=== PATIENT | male | born 1975 | race Caucasian/White ===

== ENCOUNTER 2017-04-05 19:44 | Observation (INO) | payer BC ==
[~2017-04-05] VITALS: Ht 182.9 cm; Wt 105.3 kg
[2017-04-05] MEDS ORDERED: SODIUM CHLORIDE 0.9% 1000ML 1,000 ML IV STA (20:36)
[2017-04-05] MEDS ORDERED: OPTIRAY 320 IV PRN (20:45)
--- NOTE | 2017-04-05 20:58 | DIAGNOSTIC IMAGING REPORT ---
SINGLE VIEW CHEST CLINICAL HISTORY: Atypical chest pain. FINDINGS: An AP, portable, upright chest radiograph is obtained. No prior studies are available for comparison at the time of dictation. The cardiomediastinal silhouette is unremarkable. The lungs and pleural spaces are clear. No pneumothorax is seen. The bony thorax is grossly intact. IMPRESSION: No active disease in the chest. Electronically signed by: Trevin Hawley M.D. 04/05/2017 8:56 PM Dictated Date/Time: 04/05/2017 8:56 PM
[2017-04-05 20:59] LABS: BASO % 0.3 %; BASO ABS # 0.03 K/uL (0-0.2); EOS % 0.8 %; EOS ABS # 0.08 K/uL (0-0.5); HEMATOCRIT 39.9 % (42-52); HEMOGLOBIN 13.7 g/dL (14.0-18.0); IG# 0.03 K/uL (0.00-0.02); LYMPH % 24.5 %; LYMPH ABS # 2.47 K/uL (1.2-3.4); MEAN CELL VOLUME 90.5 fL (80-100); MEAN CORPUSCULAR HEMOGLOBIN 31.1 pg (25-34); MEAN CORPUSCULAR HGB CONC 34.3 g/dl (32-36); MEAN PLATELET VOLUME 9.3 fL (7.4-10.4); MONO % 9.3 %; MONO ABS # 0.94 K/uL (0.11-0.59); NEUT % 64.8 %; NEUT ABS # 6.52 K/uL (1.4-6.5); PLATELET COUNT 269 K/uL (130-400); RED CELL DISTRIBUTION WIDTH CV 12.8 % (11.5-14.5); RED CELL DISTRIBUTION WIDTH SD 42.8 fL (36.4-46.3); WHITE BLOOD COUNT 10.07 K/uL (4.8-10.8)
[2017-04-05] MEDS ORDERED: PATIENT'S ALLERGY INFO NEEDS ENTERED SCH (21:00)
[2017-04-05 21:15] LABS: ALBUMIN 3.9 gm/dl (3.4-5.0); CALCIUM 9.3 mg/dl (8.5-10.1); CREATININE 1.25 mg/dl (0.60-1.40)
[2017-04-05 21:18] LABS: TOTAL PROTEIN 8.1 gm/dl (6.4-8.2)
--- NOTE | 2017-04-05 22:04 | DIAGNOSTIC IMAGING REPORT ---
CT ANGIOGRAM OF THE CHEST CLINICAL HISTORY: Cough. Chest tightness. COMPARISON STUDY: Chest x-ray dated 04/05/2017. TECHNIQUE: Following the IV administration of 93 cc of Optiray 320, CT angiogram of the chest was performed from the upper abdomen to the thoracic inlet utilizing the pulmonary embolus protocol. Images are reviewed in the axial, sagittal, and coronal planes. 3-D MIPS images are created and assessed. IV contrast was administered without complication. A dose lowering technique was utilized adhering to the principles of ALARA. CT DOSE: 558.96 mGy.cm FINDINGS: Thyroid: Imaged portions of the thyroid gland are normal in size and attenuation. Thoracic aorta: The thoracic aorta is normal in caliber and demonstrates standard 3-vessel arch anatomy. No dissection is seen. Pulmonary vasculature: The pulmonary trunk is normal in caliber. There are no filling defects identified in main, lobar, or segmental pulmonary branches to suggest pulmonary embolus. Heart: The heart is Normal in size and without pericardial effusion. Lungs and pleural spaces: Patchy groundglass consolidation is seen in the left lower lobe. The lungs are otherwise clear noting dependent atelectasis. No pleural effusion is identified. A calcified granuloma seen at the left lung base. The trachea and central airways appear patent. Mild diffuse peribronchial thickening suggests reactive airway disease. Mediastinum: There is no mediastinal lymphadenopathy. Reina: Clear. Axillae: There is no axillary lymphadenopathy. Upper abdomen: The liver is steatotic. Fatty sparing is noted adjacent to gallbladder fossa. Partially visualized upper abdominal viscera is otherwise within normal limits. Skeletal structures: No lytic or blastic bony lesions are seen. IMPRESSION: 1. There is no evidence of pulmonary embolus in the main, lobar, or segmental pulmonary arteries. 2. There is mild patchy groundglass consolidation in the left lower lobe, likely representing a mild infectious/inflammatory pneumonitis. Clinical correlation will be required. 3. The lungs are otherwise clear. Mild diffuse peribronchial thickening suggests reactive airway disease. 4. Hepatic steatosis. Electronically signed by: Trevin Hawley M.D. 04/05/2017 10:03 PM Dictated Date/Time: 04/05/2017 9:59 PM
[2017-04-05] MEDS ORDERED: ASPIRIN 81 MG CHEW PO STA (22:15)
--- NOTE | 2017-04-05 22:40 | EMERGENCY ROOM VISIT NOTE ---
ED Visit Note First contact with patient: 20:24 Patient was discussed with my PA and the current plan is with the EKG changes to observe him overnight.
[2017-04-05] MEDS ORDERED: VANCOMYCIN INJ 2,500 MG in SODIUM CHLORIDE 0.9% 500ML 500 ML IV STA (23:01)
[2017-04-05] MEDS ORDERED: VANCOMYCIN CONSULT ACTIVE PRN (23:15)
--- NOTE | 2017-04-05 23:42 | History and Physical ---
History & Physical Date & Time of Service: Apr 05, 2017 at 23:30 Chief Complaint: Cough, Chest Tightness- Physician Referred Primary Care Physician: No Doctor, Assigned History of Present Illness Source: patient 41 y/o M who denies any significant medical history. The pt is recovering from an upper respiratory infection. His and two children were recently treated for influenza. He had presented to his PCP earlier in the week and was not given Tamiflu himself or tested for influenza as his MD felt that this would be self-limiting. This evening, he developed L lower CP and presented to the hospital. The pain resolved spontaneously. There was concern for inferior T wv inversions on an initial EKG. The pt was sent for a CTA while in the ER which revealed a small LLL consolidation. Past Medical/Surgical History Denies a significant medical history Family History The pt denies a family history of CAD Social History [employer] for [employer] Smoking Status: Never Smoker Allergies Coded Allergies: No Known Allergies (Unverified , 04/05/17) Home Medications No Active Prescriptions or Reported Meds Review of Systems Constitutional: + fever (a few days prior) ENT: + nasal symptoms, + sore throat, No hearing loss Respiratory: + cough, + sputum, No wheezing Cardiovascular: + chest pain, No orthopnea, No PND Abdomen: No pain, No nausea, No vomiting Musculoskeletal: No joint pain Genitourinary - Male: No hematuria, No dysuria Neurologic: No memory loss, No paralysis, No weakness Psychiatric: No depression symptoms Endocrine: No fatigue Hematologic / Lymphatic: No abnormal bleeding/bruising Integumentary: No rash Physical Exam Vital Signs Date Time Temp Pulse Resp B/P (MAP) Pulse Ox O2 Delivery O2 Flow Rate FiO2 04/05/17 22:27 78 17 148/88 97 Room Air 04/05/17 20:49 61 04/05/17 19:53 98 Room Air 04/05/17 19:49 37.0 80 16 129/87 98 Room Air General Appearance: WD/WN, no apparent distress Head: normocephalic Eyes: normal inspection ENT: normal ENT inspection, pharynx normal Neck: supple, no JVD Respiratory/Chest: chest non-tender, lungs clear, normal breath sounds Cardiovascular: regular rate, rhythm, no edema, no gallop Abdomen/GI: normal bowel sounds, non tender, soft Back: normal inspection, no CVA tenderness Extremities/Musculoskelatal: normal inspection, no calf tenderness, normal capillary refill Neurologic/Psych: tariff counsel II-XII nml as tested, no motor/sensory deficits, alert, oriented x 3 Skin: normal color Diagnostics Laboratory Results Results Past 24 Hours Test 04/05/17 20:45 04/05/17 20:49 04/05/17 23:29 Range/Units White Blood Count 10.07 4.8-10.8 K/uL Red Blood Count 4.41 4.7-6.1 M/uL Hemoglobin 13.7 14.0-18.0 g/dL Hematocrit 39.9 42-52 % Mean Corpuscular Volume 90.5 80-100 fL Mean Corpuscular Hemoglobin 31.1 25-34 pg Mean Corpuscular Hemoglobin Concent 34.3 32-36 g/dl Platelet Count 269 130-400 K/uL Mean Platelet Volume 9.3 7.4-10.4 fL Neutrophils (%) (Auto) 64.8 % Lymphocytes (%) (Auto) 24.5 % Monocytes (%) (Auto) 9.3 % Eosinophils (%) (Auto) 0.8 % Basophils (%) (Auto) 0.3 % Neutrophils # (Auto) 6.52 1.4-6.5 K/uL Lymphocytes # (Auto) 2.47 1.2-3.4 K/uL Monocytes # (Auto) 0.94 0.11-0.59 K/uL Eosinophils # (Auto) 0.08 0-0.5 K/uL Basophils # (Auto) 0.03 0-0.2 K/uL RDW Standard Deviation 42.8 36.4-46.3 fL RDW Coefficient of Variation 12.8 11.5-14.5 % Immature Granulocyte % (Auto) 0.3 % Immature Granulocyte # (Auto) 0.03 0.00-0.02 K/uL Sodium Level 138 136-145 mmol/L Potassium Level 4.0 3.5-5.1 mmol/L Chloride Level 103 98-107 mmol/L Carbon Dioxide Level 28 21-32 mmol/L Anion Gap 7.0 3-11 mmol/L Blood Urea Nitrogen 15 7-18 mg/dl Creatinine 1.25 0.60-1.40 mg/dl Est Creatinine Clear Calc Drug Dose 96.1 ml/min Estimated GFR () 81.8 Estimated GFR (Non- 70.6 BUN/Creatinine Ratio 11.7 10-20 Random Glucose 102 70-99 mg/dl Calcium Level 9.3 8.5-10.1 mg/dl Total Bilirubin 0.7 0.2-1 mg/dl Direct Bilirubin 0.1 0-0.2 mg/dl Aspartate Amino Transf (AST/SGOT) 23 15-37 U/L Alanine Aminotransferase (ALT/SGPT) 40 12-78 U/L Alkaline Phosphatase 54 45-117 U/L Total Protein 8.1 6.4-8.2 gm/dl Albumin 3.9 3.4-5.0 gm/dl Lipase 126 73-393 U/L Bedside Troponin I < 0.030 0-0.045 ng/ml Diagnostic Radiology CTA: 1. There is no evidence of pulmonary embolus in the main, lobar, or segmental pulmonary arteries. 2. There is a mild patchy groundglass consolidation in the left lower lobe, likely representing a mild infectious/inflammatory pneumonitis. Clinical correlation will be required. 3. The lungs are otherwise clear. Mild diffuse peribronchial thickening suggests reactive airway disease. 4. Hepatic steatosis. EKG NSR - questionable inferior inversions - no significant change on repeat Impression Assessment and Plan 41 y/o M who denies any significant medical history. The pt is recovering from an upper respiratory infection. His and two children were recently treated for influenza. He had presented to his PCP earlier in the week and was not given Tamiflu himself or tested for influenza as his MD felt that this would be self-limiting. This evening, he developed L lower CP and presented to the hospital. The pain resolved spontaneously. There was concern for inferior T wv inversions on an initial EKG. The pt was sent for a CTA while in the ER which revealed a small LLL consolidation. 1) LLL consolidation - presumed post-viral PNM - based on location, this may be the cause of his CP. The pt is provided with an initial dose of Levaquin and Vanc. He will be maintained on Levaquin pending result of a sputum culture. He is not requiring 02 and does not meet admission criteria based on his current signs/symptoms. 2) CP - possible EKG changes - repeat trop pending - he does not have traditional risk factors but is overweight an male. We will trend his enzymes and monitor on telemetry for recurrence of CP. He is provided ASA. A stress test is in order but can likely be scheduled as an outpt provided there is no evidence of active ischemia. Full code - Heparin prophylaxis Total time for this admit including review of labs, meds, imaging - discussion with pt and ER attending - 35 min Level of Care Telemetry Resuscitation Status FULL RESUSCITATION VTE Prophylaxis Given or contraindicated: Enoxaparin (Lovenox)SQ
[2017-04-06] MEDS ORDERED: ZOLPIDEM TARTRATE 5 MG TAB PO PRN (00:15)
[2017-04-06] MEDS ORDERED: POLYETHYLENE (MIRALAX) 17 GM PACK PO PRN (00:15)
[2017-04-06] MEDS ORDERED: ONDANSETRON INJ 2 MG/ML 2 ML VIAL IV PRN (00:15)
[2017-04-06] MEDS ORDERED: ACETAMINOPHEN 325 MG TAB PO PRN (00:15)
[2017-04-06] MEDS ORDERED: MoRPHine SULFATE 2 MG/ML CARP IV PRN (00:15)
[2017-04-06] MEDS ORDERED: MAGNESIUM HYDROXIDE SUSP 30 ML UDC PO PRN (00:15)
[2017-04-06] MEDS ORDERED: ALUMINUM/MAGNESIUM/SIMETH (MAALOX MAX) 30 ML UDC PO PRN (00:15)
[2017-04-06 01:30] VITALS: BP 125/72; PULSE 56; TEMP 36.7; O2SAT 98; Ht 182.9 cm; Wt 105.3 kg
[2017-04-06 04:00] VITALS: BP 132/72; PULSE 61; TEMP 36.8; O2SAT 99
[2017-04-06] MEDS ORDERED: LEVOFLOXACIN / D5W 750 MG in PREMIXED IN D5W 150 ML IV SCH (04:00)
[2017-04-06 05:20] LABS: INR 1.1 (0.9-1.1)
[2017-04-06] MEDS ORDERED: HEPARIN SOD 5000 UNIT/0.5 ML CARP SQ SCH (06:00)
[2017-04-06] MEDS ORDERED: IV FLUIDS COMPLETED PRN (06:15)
[2017-04-06 07:47] VITALS: BP 120/73; PULSE 70; TEMP 37.2; O2SAT 98
[2017-04-06] MEDS ORDERED: ASPIRIN 81 MG ECTAB PO SCH (09:00)
[2017-04-06] MEDS ORDERED: VANCOMYCIN INJ 1,500 MG in SODIUM CHLORIDE 0.9% 500ML 500 ML IV SCH (09:00)
--- NOTE | 2017-04-06 09:27 | Pharmacy Progress Note ---
Pharmacy Abx Initial Consult Date of Service Apr 06, 2017. Pharmacy Dosing Scope Date of Consult: 04/05/17 Consultation requested by: Dr. Coronel Pharmacy is consulted to initiate Vancomycin IV dosing therapy, order appropriate labs and adjust drug dose/frequency. Subjective The patient is a 41 year old male admitted on Apr 06, 2017 at 00:14. Objective Height (Feet): 6 Height (Inches): 0.00 Weight (Kilograms): 105.300 Vital Signs (Past 12Hrs) Vital Signs Past 12 Hours Date Time Temp Pulse Resp B/P (MAP) Pulse Ox O2 Delivery O2 Flow Rate FiO2 04/06/17 07:47 37.2 70 18 120/73 (89) 98 Room Air 04/06/17 04:00 Room Air 04/06/17 04:00 36.8 61 20 132/72 (92) 99 Room Air 04/06/17 01:30 36.7 56 20 125/72 98 Room Air 04/06/17 00:30 57 20 142/81 98 Room Air 04/06/17 00:08 70 04/05/17 22:27 78 17 148/88 97 Room Air Lab Results (24Hrs) Laboratory Tests (24 Hours) Test 04/05/17 20:45 White Blood Count 10.07 K/uL (4.8-10.8) Red Blood Count 4.41 M/uL (4.7-6.1) L Hemoglobin 13.7 g/dL (14.0-18.0) L Hematocrit 39.9 % (42-52) L Mean Corpuscular Volume 90.5 fL (80-100) Mean Corpuscular Hemoglobin 31.1 pg (25-34) Mean Corpuscular Hemoglobin Concent 34.3 g/dl (32-36) Platelet Count 269 K/uL (130-400) Mean Platelet Volume 9.3 fL (7.4-10.4) Neutrophils (%) (Auto) 64.8 % Lymphocytes (%) (Auto) 24.5 % Monocytes (%) (Auto) 9.3 % Eosinophils (%) (Auto) 0.8 % Basophils (%) (Auto) 0.3 % Neutrophils # (Auto) 6.52 K/uL (1.4-6.5) H Lymphocytes # (Auto) 2.47 K/uL (1.2-3.4) Monocytes # (Auto) 0.94 K/uL (0.11-0.59) H Eosinophils # (Auto) 0.08 K/uL (0-0.5) Basophils # (Auto) 0.03 K/uL (0-0.2) Micro Results Date/Time Source Procedure Growth Status 04/06/17 08:07 Sputum Expectorated Sputum Gram Stain Pending Received 04/06/17 08:07 Sputum Expectorated Sputum Sputum Culture Pending Received Assessment & Plan Assessment Pt p/w possible LLL. Sputum and MRSA nares are both currently pending. Pt population p'kinetics: t1/2=8.2, ke=0.0841. He is afebrile. qSOFA score at this juncture is 0. Pt's habitus is indicative of Vancomycin accumulation. Plan Vancomycin * Loading dose 2500 (24mg/kg) to achieve a peak ~39mcg/mL * Then Vancomycin 1500 (14mg/kg) q10 * Goal trough for pulmonary source: 15-20mcg/mL * Trough ordered for 04/07/17 @ 0430, this will be prior LVQ * Appropriately dosed pursuant to renal fxn eCrCl>50cc/min Pharmacy will continue to follow and will adjust dose/frequency as necessary. Thank you.
[2017-04-06 11:51] VITALS: BP 127/72; PULSE 71; TEMP 36.9; O2SAT 98
[2017-04-06 11:54] VITALS: BP 114/72; PULSE 86; TEMP 36.4; O2SAT 96
[2017-04-06 12:42] VITALS: BP 127/72; PULSE 71; TEMP 36.9; O2SAT 98
[2017-04-06] MEDS ORDERED: LEVO1TAB35 PO (12:53)
--- NOTE | 2017-04-06 12:57 | Discharge Instructions ---
Discharge Instructions Date of Service Apr 06, 2017. Admission Reason for Admission: Chest Pain, Pneumonia Discharge Discharge Diagnosis / Problem: Chest pain, Pneumonia Discharge Goals Goal(s): Improve disease control, Diagnostic testing, Therapeutic intervention Activity Recommendations Activity Limitations: as noted below Exercise/Sports Limitations: gradually increase as tolerated Shower/Bathe: no limitations Driving or Machine Use: no limitations . Instructions / Follow-Up Instructions / Follow-Up You were admitted with left sided chest pain and found to have a left sided pneumonia after having flu-like symptoms. You should continue on the antibiotic called Levaquin for four more days. Your ECG showed a very slight abnormality that stayed the same on repeat ECG. Your blood tests for a heart attack were all negative. This abnormality on ECG may just be the norm for you, but would need to be compared to a previous ECG from when you had your previous stress test. Please follow up with your PCP as scheduled for you in 2 days. You should have a repeat chest xray in about 3-4 weeks to ensure your Pneumonia has cleared. Current Hospital Diet Patient's current hospital diet: AHA Diet (Heart Healthy) Discharge Diet Recommended Diet: AHA Diet (Heart Healthy) Procedures Procedures Performed: CT Chest Chest xray Pending Studies Studies pending at discharge: yes List of pending studies: Sputum culture Medical Emergencies . Who to Call and When: Medical Emergencies: If at any time you feel your situation is an emergency, please call 911 immediately. . Non-Emergent Contact Non-Emergency issues call your: Primary Care Provider Call Non-Emergent contact if: temperature is above 100.5, your pain is not controlled, your pain is worsening, your pain is unusual for you, your pain is concerning you, you have any medication questions . . "Provider Documentation" section prepared by Nicole Alcantara. . VTE Core Measure Inpt VTE Proph given/why not?: Enoxaparin (Lovenox)SQ
[2017-04-07] MEDS ORDERED: VANCOMYCIN TROUGH ONE (04:30)
--- NOTE | 2017-04-07 09:41 | Discharge Summary ---
Discharge Summary Date of Service Apr 06, 2017. Discharge Summary Admission Date: Apr 06, 2017 at 00:14 Discharge Date: Apr 06, 2017 Discharge Disposition: Home Principal Diagnosis: Chest pain, Pneumonia Problems/Secondary Diagnoses: Hepatic steatosis Recent Flu-like illness Procedures: CTA Chest CXR Consultations: None Medication Reconciliation New Medications: Levofloxacin (Levaquin) 750 Mg Tab 750 MG PO DAILY for 4 Days, #4 TAB Discharge Exam Pt feeling fine, no further left sided chest chest pain. The pain was coming and going, lasted a few minutes at a time and felt like a tightness. It always seemed to come on with sitting down, and then would go away with getting up and walking around. He has not had a fever since last week when his flu symptoms were improving, then started having more of a productive cough about 3-4 days ago. Chest pain definitely he says is positional. No SOB. Cough is now improved.He had a normal stress test in [place] a couple years ago, and has no known cardiac issues. Review of Systems: Constitutional: No fever, No chills Eyes: No problem reported ENT: No problem reported Respiratory: No shortness of breath Cardiovascular: No chest pain, No edema Abdomen: No pain, No nausea, No vomiting, No diarrhea, No constipation Musculoskeletal: No problem reported Genitourinary - Male: No problem reported Neurologic: No problem reported Psychiatric: No problem reported Endocrine: No problem reported Hematologic / Lymphatic: No problem reported Integumentary: No problem reported Physical Exam: General Appearance: WD/WN, no apparent distress Eyes: normal inspection, EOMI, sclerae normal ENT: hearing grossly normal Neck: supple, no adenopathy, no JVD, no carotid bruits, trachea midline Respiratory/Chest: no respiratory distress, no accessory muscle use, + crackles (mild, in left lower lung field) Cardiovascular: regular rate, rhythm, no edema, no gallop, no murmur, normal peripheral pulses Abdomen / GI: normal bowel sounds, non tender, soft Extremities: normal inspection, no calf tenderness, normal capillary refill , no pedal edema, normal range of motion Neurologic/Psychiatric: no motor/sensory deficits, alert, normal mood/affect , oriented x 3 Skin: normal color, warm/dry, no rash Lymphatic: no adenopathy Hospital Course This pt is a 41 y/o M who denies any significant medical history. The pt is recovering from an upper respiratory infection. His and two children were recently treated for influenza. He had presented to his PCP earlier in the week and was not given Tamiflu himself or tested for influenza as his MD felt that this would be self-limiting. On the day of admission, he developed L lower CP and presented to the hospital. It was coming and going for a few minutes at a time over many hours. As above, it would come on with sitting and was relieved with standing up. The pain resolved spontaneously. There was concern for inferior T wave inversions on an initial EKG, but repeat ECGs were unchanged and serial troponins were negative x 3. The pt was sent for a CTA while in the ER which revealed a small LLL consolidation. 1) LLL consolidation - presumed post-viral PNA - based on location, this is likely the cause of his atypical CP. He was treated for PNA with Levaquin and Vancomycin, however his nasal MRSA swab was negative and the Vanco was discontinued. He will be maintained on Levaquin for a complete course after discharge. He should have a repeat CXR in 3-4 weeks to ensure resolution of his infiltrate. He is not requiring 02 and is feeling much better at the time of discharge. 2) Atypical CP - he does not have traditional risk factors but is overweight an male. Tropoinins serially negative. ECG nonspecific change and may be chronic for him but we have no previous ECG to compare to at this time. He was provided with ASA, but this does not need to be continued upon discharge. A stress test is in order but can likely be scheduled as an outpt provided as there was no evidence of active ischemia. Stable at this time for discharge to home. Total Time Spent: Greater than 30 minutes This includes examination of the patient, discharge planning, medication reconciliation, and communication with other providers. Discharge Instructions Please refer to the electronic Patient Visit Report (Discharge Instructions) for additional information. Follow-Up PCP within 1 week Follow up CXR in 3-4 weeks to ensure resolution Additional Copies To Jami [email or web address]
--- NOTE | 2017-04-07 15:50 | EMERGENCY ROOM VISIT NOTE ---
ED Visit Note First contact with patient: 20:24 Chief Complaint: Chest pain. History of Present Illness: Mr. Hines is a 41 year-old white male who ambulates into the ED complaining of left sternal border chest pain. Historically patient reports he has no personal history of coronary artery disease, there is no family history of coronary artery disease and he denies all risk factors for coronary artery disease. *Clear patient does report he's had a previous left lower leg DVT after a flight from [place] approximately 4 years ago. Patient does report that last week 2 of his children were diagnosed with influenza. He started developing a cough and fever last Tuesday and was also diagnosed with influenza without testing and was not treated. Patient reports today was the first day back at work. He reports he got up this morning and after dressing for work he had an episode of diaphoresis. Since that time he's had a mild return of his nonproductive cough. Then this afternoon, approximately 5 hours ago, while at rest he developed an acute onset of left sternal chest pain. Since that time his pain has been intermittent. He describes this tightness sensation. The pain extends from the left sternal border into the left nipple area. He rates his discomfort 3/ 10. He reports his pain worsens when he is at rest and sitting down but improves when he is at rest and standing up. He has not taken any medications for his discomfort prior to arrival at the hospital. Associated with his discomfort he does report he has had mild return of his cough and that episode of diaphoresis this morning but no additional episodes of diaphoresis. He denies fevers, chills, skin eruptions, skin color changes, other upper respiratory tract symptoms, palpitations, orthopnea, dependent edema, claudication, cramping, recent surgery/inactivity/extended travel, abdominal pain, nausea, vomiting, back/flank pain. Review of Systems: As noted above in history of present illness. All body systems were reviewed and found to be negative as noted above. Past Medical History: As previously noted, status post anal fistula repair. Current Medications: Patient denies. Allergies to Medications: Patient denies. Social History: Patient is currently employed; he feels safe in his home environment; he denies tobacco use and admits to social alcohol use. Physical Examination: Vital Signs: Date Time Temp Pulse Resp B/P (MAP) Pulse Ox O2 Delivery O2 Flow Rate FiO2 04/06/17 00:08 70 04/05/17 22:27 78 17 148/88 97 Room Air 04/05/17 20:49 61 04/05/17 19:53 98 Room Air 04/05/17 19:49 37.0 80 16 129/87 98 Room Air GENERAL: 41-year-old male in no acute distress, due to pain, nontoxic-appearing , afebrile and hemodynamically stable. NEUROLOGICAL: Awake, alert and oriented to person, place and time. Answering questions appropriately and following commands. Normal gait. Good hand eye coordination. SKIN: Warm, dry and pink. No soft tissue eruptions or trauma noted. HEENT: Atraumatic and normocephalic. PERRLA. Sclera white and conjunctiva pink. Oral cavity moist and pink. Pharynx is nonerythematous or edematous. Speech normal. No lymphadenopathy. Trachea midline. No jugular venous distention. No carotid bruits. BACK: No tenderness over the bony spine. No CVA tenderness. THORAX: Lungs sounds are clear to auscultation and equal bilaterally with symmetrical chest wall. No wheezing, rales or rhonchi. No crepitus, tenderness , subcutaneous air or deformities noted. HEART: Regular rate and rhythm. No gallops, rubs or murmurs are appreciated. No lifts, heaves or thrills. PMI is not displaced. ABDOMEN: Flat, soft and nontender. Positive bowel sounds in all quadrants. No guarding, rigidity or organomegaly. EXTREMITIES: Moves all extremities well on command and with purpose. All distal neurovascular statuses are intact and equal bilaterally. No dependent edema or calf tenderness/cords. ED Course: Patient is assessed as noted above. Laboratory Testing: Test 04/05/17 20:45 04/05/17 20:49 04/05/17 23:29 Range/Units White Blood Count 10.07 4.8-10.8 K/uL Red Blood Count 4.41 4.7-6.1 M/uL Hemoglobin 13.7 14.0-18.0 g/dL Hematocrit 39.9 42-52 % Mean Corpuscular Volume 90.5 80-100 fL Mean Corpuscular Hemoglobin 31.1 25-34 pg Mean Corpuscular Hemoglobin Concent 34.3 32-36 g/dl Platelet Count 269 130-400 K/uL Mean Platelet Volume 9.3 7.4-10.4 fL Neutrophils (%) (Auto) 64.8 % Lymphocytes (%) (Auto) 24.5 % Monocytes (%) (Auto) 9.3 % Eosinophils (%) (Auto) 0.8 % Basophils (%) (Auto) 0.3 % Neutrophils # (Auto) 6.52 1.4-6.5 K/uL Lymphocytes # (Auto) 2.47 1.2-3.4 K/uL Monocytes # (Auto) 0.94 0.11-0.59 K/uL Eosinophils # (Auto) 0.08 0-0.5 K/uL Basophils # (Auto) 0.03 0-0.2 K/uL RDW Standard Deviation 42.8 36.4-46.3 fL RDW Coefficient of Variation 12.8 11.5-14.5 % Immature Granulocyte % (Auto) 0.3 % Immature Granulocyte # (Auto) 0.03 0.00-0.02 K/uL Prothrombin Time 11.2 9.0-12.0 SECONDS Prothromb Time International Ratio 1.1 0.9-1.1 Sodium Level 138 136-145 mmol/L Potassium Level 4.0 3.5-5.1 mmol/L Chloride Level 103 98-107 mmol/L Carbon Dioxide Level 28 21-32 mmol/L Anion Gap 7.0 3-11 mmol/L Blood Urea Nitrogen 15 7-18 mg/dl Creatinine 1.25 0.60-1.40 mg/dl Est Creatinine Clear Calc Drug Dose 96.1 ml/min Estimated GFR () 81.8 Estimated GFR (Non- 70.6 BUN/Creatinine Ratio 11.7 10-20 Random Glucose 102 70-99 mg/dl Calcium Level 9.3 8.5-10.1 mg/dl Total Bilirubin 0.7 0.2-1 mg/dl Direct Bilirubin 0.1 0-0.2 mg/dl Aspartate Amino Transf (AST/SGOT) 23 15-37 U/L Alanine Aminotransferase (ALT/SGPT) 40 12-78 U/L Alkaline Phosphatase 54 45-117 U/L Total Protein 8.1 6.4-8.2 gm/dl Albumin 3.9 3.4-5.0 gm/dl Lipase 126 73-393 U/L Bedside Troponin I < 0.030 0-0.045 ng/ml Troponin I < 0.015 0-0.045 ng/ml Chest X-Ray: Was read by myself and the radiologist showing no acute infiltrates , effusions or pneumothorax. Normal heart silhouette and bony anatomy. No free air under the diaphragm. Chest CTA: Was reviewed by myself and read by the radiologist showing no evidence of pulmonary emboli, mild patchy groundglass consolidation in the left lower lip lobe, mild diffuse peribronchial thickening suggestive of reactive airway disease. EKG: Was read by myself and reviewed with Dr. Humphries; shows normal sinus rhythm with a ventricular rate of 61 bpm. T-wave inversion noted in leads 3 and aVF Patient was hydrated with normal saline. Patient received 324 mg of aspirin by mouth. Patient was reassessed multiple times during his stay in the emergency department. Patient's case was reviewed with Dr. Humphries; we agreed on diagnostic approach, treatment, disposition and plan. Patient's case was consulted with case management and Dr. Coronel, hospitalist; for medical observation/admission. Patient was educated about today's findings. Clinical Impression: Chest pain. EKG changes. Decision-Making: Initially my differential diagnosis I considered Q coronary syndrome, thoracic aneurysm, pneumothorax, pulmonary embolism, pneumonia, chest wall trauma and other causes. Disposition and Plan: Patient be brought into the ED by the hospitalist for observation/admission; please see his notes and orders for final disposition and plan.
== END 2017-04-06 14:10 | disposition home or self-care (01) ==
LOC: C.EDB 19:46 → C.MED 04-06 00:14 → ENRESERV 04-06 00:49
PROVIDERS: ADMIT Internal Medicine; ATTEND Family Medicine
DX: R07.89 Other chest pain (principal); J18.9 Pneumonia, unspecified organism; K76.0 Fatty (change of) liver, not elsewhere classified

== ENCOUNTER → 2017-04-18 | Outpatient (CLI) | payer BC ==
--- NOTE | 2017-04-18 17:40 | DIAGNOSTIC IMAGING REPORT ---
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 No areas of acute deep venous thrombosis. Compressibility and augmentation characteristics are unremarkable. IMPRESSION: 1. Small focus of chronic thrombophlebitis mid calf involving the peroneal vein. 2. No evidence for acute deep venous thrombosis. The above report was generated using voice recognition software. It may contain grammatical, syntax or spelling errors. Electronically signed by: Syed Louis M.D. 04/18/2017 5:39 PM Dictated Date/Time: 04/18/2017 5:34 PM
== END | disposition home or self-care (01) ==
LOC: C.ULTR 16:58
PROVIDERS: ATTEND Nurse Practitioner Family
DX: M79.605 Pain in left leg (principal); Z86.718 Personal history of other venous thrombosis and embolism; I80.292 Phlebitis and thrombophlebitis of other deep vessels of left lower extremity

== ENCOUNTER → 2017-05-02 | Outpatient (CLI) | payer BC ==
--- NOTE | 2017-05-02 16:01 | DIAGNOSTIC IMAGING REPORT ---
CHEST 2 VIEWS ROUTINE CLINICAL HISTORY: PNEUMONIA COMPARISON STUDY: 04/05/2017 FINDINGS: The cardiac and mediastinal contours are normal. There is no evidence of focal pulmonary consolidation. There is no evidence of failure. No pleural effusions are visualized.[ IMPRESSION: No active disease in the chest. Electronically signed by: Luís Seay M.D. 05/02/2017 3:59 PM Dictated Date/Time: 05/02/2017 3:59 PM
== END | disposition home or self-care (01) ==
LOC: C.RADBC 15:50
PROVIDERS: ATTEND Nurse Practitioner
DX: J18.9 Pneumonia, unspecified organism (principal)